=== PATIENT | female | born 1940 | race Caucasian/White ===

== ENCOUNTER 2016-10-05 17:51 | Emergency (ER) | payer MEDICARE ==
[~2016-10-05] VITALS: Ht 175.3 cm; Wt 87.2 kg
[2016-10-05 17:57] VITALS: BP 126/66; PULSE 69; RESP 16; TEMP 97.4; O2SAT 97
[2016-10-05 18:22] LABS: BLOOD, URINE NEG (NEG); GLUCOSE,URINE NEG (NEG); KETONE, URINE TRACE mg/dL (NEG); NITRITE,URINE NEG (NEG)
[2016-10-05 18:24] LABS: URINE COLOR YELLOW (YELLW/STRAW)
[2016-10-05 18:28] LABS: COMMENT (UR) CULT NOT INDICATED; CULTURE IF INDICATED CULT NOT INDICATED; RBC, URINE 0-2 /hpf (0-3); SQUAMOUS EPITHELIAL CELL URINE 0-5 /hpf (0-5)
[2016-10-05] MEDS ORDERED: SODIUM CHLOR 0.9% 1000 ML INJ 1,000 ML IV SCH (18:51)
[2016-10-05] MEDS ORDERED: SODIUM CHLORIDE 0.9% FLUSH 5 ML FLUSH IVF PRN (19:00)
--- NOTE | 2016-10-05 19:19 | RADHPO ---
EXAM DATE/TIME: 10/05/2016 18:57 [facility] COMPARISON: No previous studies available for comparison. INDICATIONS : Patient states abdominal distention. MEDICAL HISTORY : None. SURGICAL HISTORY : Tubal ligation. Appendectomy. ENCOUNTER: Initial ACUITY: 4 - 6 days PAIN SCORE: 6/10 LOCATION: Bilateral Abdomen FINDINGS: Supine and upright views of the abdomen were performed. The abdominal bowel gas pattern is normal. No air fluid levels are seen. No abnormal masses, calcifications, or organomegaly is seen. The visu alized lower lungs are clear. No evidence of free intraperitoneal gas. 4 cm smoothly marginated calcification seen projecting over the right upper quadrant. The osseous structures are unremarkable. CONCLUSION: 1. Nonobstructive bowel gas pattern. 2. No free air. 3. Large stone in the right upper quadrant, presumably a gallstone. Porcelain gallbladder could mark ivably appear similar. Hossein Edouard MD on October 05, 2016 at 19:17 Board Certified Radiologist. This report was verified electronically.
--- NOTE | 2016-10-05 19:30 | PD ---
HPI Chief Complaint: Abdominal Pain Time Seen by Provider: 19:20 Travel History International Travel<30 days: No Contact w/Intl Traveler<30days: No Traveled to known affect area: No History of Present Illness HPI 76-year-old female presents to the emergency department by private transportation for evaluation of abdominal discomfort and inability to have a bowel movement for the past 3-5 days. Patient states she is visiting the area with her daughter from [facility]. Patient states she's been in the area since the 22 September. Patient states she has not had a normal bowel movement in that timeframe only small amounts. Patient states due to persistent constipation or inability to have a satisfactory bowel movement decided to go to a bowel massage therapist and had a small bowel movement and then went to the [facility] today was evaluated and identified to have epigastric and RUQ pain; she was encouraged come to the emergency room to be evaluated for bowel obstruction possible gallbladder disease and to have a CAT scan with contrast based upon paper work that presents with the patient. Patient denies fever or chills. Patient's had no nausea or vomiting. Patient states pain is somewhat epigastric. Patient admits to heavy fatty food consumption around [place]. Patient states that in March her from cancer and while he was being treated for cancer he was following a protocol per a specialist in detoxification which included daily or every other day Dr Dunn coffee-ground enemas at [facility] in [place]. Patient states that after her passed she felt she needed detoxification so for the past 3 months every day or every other day she has religiously administered the same bowel prep with coffee-ground enemas to have bowel movements on herself. Patient states she successfully detoxified herself and then decided to come here on vacation September 22 and since that time she has not performed any coffee-ground enemas and subsequently has not had any satisfactory bowel movements. Patient rates discomfort 5/10 in intensity. Patient does not report any melena or hematochezia. Patient denies any dysuria frequency or urgency. Patient denies any chronic medical conditions. Patient is status post appendectomy in the past. Patient also has had previous tubal ligation. Patient takes no prescription medications reported. PFSH Past Medical History Narrative Medical Tubal ligation, appendectomy; no tobacco use; nursing notes reviewed ?: Not Social History Tobacco Use: No Allergies-Medications (Allergen,Severity, Reaction): Coded Allergies: No Known Allergies (Unverified , 10/05/16) Reported Meds & Prescriptions Reported Meds & Active Scripts Active Zofran Odt (Ondansetron Odt) 4 Mg Tab 4 Mg SL Q6HR PRN Narrative Medication No medications Review of Systems Except as stated in HPI: all other systems reviewed are Neg General / Constitutional: Positive: Weight Gain (subjective weight gain), No: Fever, Chills HENT: No: Congestion Cardiovascular: No: Chest Pain or Discomfort Respiratory: No: Shortness of Breath Gastrointestinal: Positive: Abdominal Pain, Constipation, No: Nausea, Vomiting , Diarrhea, Hematochezia, Loss of Appetite Genitourinary: No: Dysuria, Pelvic Pain Musculoskeletal: No: Myalgias, Arthralgias Skin: No Rash Neurologic: No: Weakness Psychiatric: No: Anxiety Hematologic/Lymphatic: No: Lymph Node Enlargement Physical Exam Narrative GENERAL: Well-developed well-nourished female in no acute distress no respiratory distress SKIN: Warm and dry. HEAD: Normocephalic. EYES: No scleral icterus. No injection or drainage. NECK: Supple, trachea midline. No JVD or lymphadenopathy. CARDIOVASCULAR: Regular rate and rhythm without murmurs, gallops, or rubs. RESPIRATORY: Breath sounds equal bilaterally. No accessory muscle use. GASTROINTESTINAL: Abdomen soft, non-tender, nondistended. Nondistended and no guarding no rebound no clinical Daniels sign. Rectal exam normal sphincter tone brown stool in the rectal vault. MUSCULOSKELETAL: No cyanosis, or edema. BACK: Nontender without obvious deformity. No CVA tenderness. Data Data Last Documented VS Orders Urinalysis - C+S If Indicated (10/05/16 18:14) Complete Blood Count With Diff (10/05/16 18:51) Comprehensive Metabolic Panel (10/05/16 18:51) Lipase (10/05/16 18:51) Lactic Acid (10/05/16 18:51) Abdomen, Flat & Upright (10/05/16 ) Iv Access Insert/Monitor (10/05/16 18:51) Ecg Monitoring (10/05/16 18:51) Oximetry (10/05/16 18:51) Sodium Chlor 0.9% 1000 Ml Inj (Ns 1000 M (10/05/16 18:51) Sodium Chloride 0.9% Flush (Ns Flush) (10/05/16 19:00) Ct Abd/Pel W Iv Contrast(Rout) (10/05/16 19:20) Us Abdomen Gallbladder (10/05/16 ) Iohexol 350 Inj (Omnipaque 350 Inj) (10/05/16 21:06) Labs MDM Medical Decision Making Medical Screen Exam Complete: Yes Emergency Medical Condition: Yes Medical Record Reviewed: Yes Interpretation(s) cbc: wnl cmp: wnl lipase: not elevated lactic acid: not elevated ua: wnl axr: no obstruction concern for calcified stone or porcine gallbladder Last Impressions Abdomen/Pelvis CT 10/05/16 1920 Signed Impressions: Service Date/Time: October 21:02 - CONCLUSION: 1. Large gallstone. 2. Small cyst in the liver. 3. Atherosclerotic plaque of the abdominal aorta. No aneurysm. 4. Uterine fibroids. Hossein Edouard MD Gall Bladder Ultrasound 10/05/16 0000 Signed Impressions: Service Date/Time: October 21:05 - CONCLUSION: Large stone of the gallbladder fundus with surrounding wall thickening. Please see above. Hossein Edouard MD Abdomen X-Ray 10/05/16 0000 Signed Impressions: Service Date/Time: October 18:57 - CONCLUSION: 1. Nonobstructive bowel gas pattern. 2. No free air. 3. Large stone in the right upper quadrant, presumably a gallstone. Porcelain gallbladder could conceivably appear similar. Hossein Edouard MD Differential Diagnosis Constipation (slow transit, laxative dependent) , bowel obstruction, ileus, biliary colic, cholecystitis, pancreatitis, gastritis, peptic ulcer disease, irritable bowel syndrome Narrative Course IV access obtained specimens collected and sent for resulting Plain film imaging study shows right upper quadrant opacification concerning for large gallstone or porcine gallbladder; US GB ordered CBC metabolic panel lipase lactic acid urinalysis values all in normal range; ultrasound and CT imaging studies ending; patient has been up out of bed and ambulatory in the emergency department in no apparent discomfort; abdomen soft nontender Patient has returned from [facility] imaging studies have been resulted and patient has been reexamined abdomen is soft nontender without guarding or rebound and no clinical Daniels sign. Discomfort has diminished from 5/10 in intensity to 1-1-1/2 over 10 in intensity and patient states that she must leave that she cannot be admitted cannot be observed and has to go home tomorrow. Patient states is been rediscussed and imaging studies have been discussed with on-call general surgery who will see patient in follow-up as an outpatient. Patient is returning to the area as she is moving here in the next few days and will establish with on-call general surgery and will continue to follow up with her local yeast washer. Patient is informed of dietary recommendation is also encouraged to use sparingly MiraLAX and is encouraged to return immediately to the emergency department for pain fever vomiting or any concerns patient is aware again of symptoms to watch for and dietary changes to implement. Patient's questions have been answered to her satisfaction and appears to be stable for outpatient management at this time. HemaPrompt Point of Care Internal Pos. & Neg. Controls: Passed Fecal Specimen Occult Blood: Negative Physician Communication Physician Communication Case discussed with general surgery regarding possible porcine gallbladder and pending CT; discussed with Gen Surgeon regarding CT and US results as well as improved exam nontender and decreased discomfort intensity ---will see as outpatient Diagnosis Primary Impression: Biliary colic Additional Impressions: Cholelithiasis Qualified Code: K80.20 - Calculus of gallbladder without cholecystitis without obstruction Constipation due to slow transit Referrals: Mookie Rush MD call for appointment Handle Attacher General Surgeon---call office to schedule follow up outpatient appointment Belt Loop Machine Operator call for appointment Patient Instructions: General Instructions Additional Instructions: Follow clear liquid diet for next 12-24 hours advance as tolerated to bland/ Barbra diet avoiding dairy and fried/fatty foods advance to regular diet again avoiding dairy/fried and fatty foods Follow-up with your primary care physician; follow-up with your yeast washer call office to schedule follow-up appointment; follow-up with general surgeon to schedule outpatient appointment Return to the emergency department for pain, fever, vomiting, or any concerns Take as needed as tolerated acetaminophen/Tylenol for fever 100.4F or greater Takes Zofran as prescribed as needed for nausea and/or vomiting Add MiraLAX to dietary intake and bowel habit management with increased hydration over the next 3-4 days to facilitate bowel movement; may use Dulcolax suppository times one as needed Med/Other Pt SpecificInfo: Prescription(s) given Scripts Ondansetron Odt (Zofran Odt)4 Mg Tab4 Mg SL Q6HR PRN (Nausea/Vomiting) #10 TAB Ref 0 Prov:Bernadette Arroyo MD 10/05/16 Disposition: 01 DISCHARGE HOME Condition: Stable Bernadette Arroyo MD Oct 05, 2016 19:30 Lipase 205 U/L [facility] Medical Decision Making Medical Screen Exam Complete: Yes Emergency Medical Condition: Yes Medical Record Reviewed: Yes Interpretation(s) cbc: wnl cmp: wnl lipase: not elevated lactic acid: not elevated ua: wnl axr: no obstruction concern for calcified stone or porcine gallbladder Last Impressions Abdomen/Pelvis CT 10/05/16 1920 Signed Impressions: Service Date/Time: October 21:02 - CONCLUSION: 1. Large gallstone. 2. Small cyst in the liver. 3. Atherosclerotic plaque of the abdominal aorta. No aneurysm. 4. Uterine fibroids. Hossein Edouard MD Gall Bladder Ultrasound 10/05/16 0000 Signed Impressions: Service Date/Time: October 21:05 - CONCLUSION: Large stone of the gallbladder fundus with surrounding wall thickening. Please see above. Hossein Edouard MD Abdomen X-Ray 10/05/16 0000 Signed Impressions: Service Date/Time: October 18:57 - CONCLUSION: 1. Nonobstructive bowel gas pattern. 2. No free air. 3. Large stone in the right upper quadrant, presumably a gallstone. Porcelain gallbladder could conceivably appear similar. Hossein Edouard MD Differential Diagnosis Constipation (slow transit, laxative dependent) , bowel obstruction, ileus, biliary colic, cholecystitis, pancreatitis, gastritis, peptic ulcer disease, irritable bowel syndrome Narrative Course IV access obtained specimens collected and sent for resulting Plain film imaging study shows right upper quadrant opacification concerning for large gallstone or porcine gallbladder; US GB ordered CBC metabolic panel lipase lactic acid urinalysis values all in normal range; ultrasound and CT imaging studies ending; patient has been up out of bed and ambulatory in the emergency department in no apparent discomfort; abdomen soft nontender Patient has returned from [facility] imaging studies have been resulted and patient has been reexamined abdomen is soft nontender without guarding or rebound and no clinical Daniels sign. Discomfort has diminished from 5/10 in intensity to 1-1-1/2 over 10 in intensity and patient states that she must leave that she cannot be admitted cannot be observed and has to go home tomorrow. Patient states is been rediscussed and imaging studies have been discussed with on-call general surgery who will see patient in follow-up as an outpatient. Patient is returning to the area as she is moving here in the next few days and will establish with on-call general surgery and will continue to follow up with her local yeast washer. Patient is informed of dietary recommendation is also encouraged to use sparingly MiraLAX and is encouraged to return immediately to the emergency department for pain fever vomiting or any concerns patient is aware again of symptoms to watch for and dietary changes to implement. Patient's questions have been answered to her satisfaction and appears to be stable for outpatient management at this time. HemaPrompt Point of Care Internal Pos. & Neg. Controls: Passed Fecal Specimen Occult Blood: Negative Physician Communication Physician Communication Case discussed with general surgery regarding possible porcine gallbladder and pending CT; discussed with Gen Surgeon regarding CT and US results as well as improved exam nontender and decreased discomfort intensity ---will see as outpatient Diagnosis Primary Impression: Biliary colic Additional Impressions: Cholelithiasis Qualified Code: K80.20 - Calculus of gallbladder without cholecystitis without obstruction Constipation due to slow transit Referrals: Mookie Rush MD call for appointment Handle Attacher General Surgeon---call office to schedule follow up outpatient appointment Belt Loop Machine Operator call for appointment Patient Instructions: General Instructions Additional Instructions: Follow clear liquid diet for next 12-24 hours advance as tolerated to bland/ Barbra diet avoiding dairy and fried/fatty foods advance to regular diet again avoiding dairy/fried and fatty foods Follow-up with your primary care physician; follow-up with your yeast washer call office to schedule follow-up appointment; follow-up with general surgeon to schedule outpatient appointment Return to the emergency department for pain, fever, vomiting, or any concerns Take as needed as tolerated acetaminophen/Tylenol for fever 100.4F or greater Takes Zofran as prescribed as needed for nausea and/or vomiting Add MiraLAX to dietary intake and bowel habit management with increased hydration over the next 3-4 days to facilitate bowel movement; may use Dulcolax suppository times one as needed Med/Other Pt SpecificInfo: Prescription(s) given Scripts Ondansetron Odt (Zofran Odt)4 Mg Tab4 Mg SL Q6HR PRN (Nausea/Vomiting) #10 TAB Ref 0 Prov:Bernadette Arroyo MD 10/05/16 Disposition: 01 DISCHARGE HOME Condition: Stable Bernadette Arroyo MD Oct 05, 2016 19:30
[2016-10-05 19:31] LABS: AUTOMATED NEUTROPHIL # 3.2 TH/MM3 (1.8-7.7); BASOPHIL # 0.1 TH/MM3 (0-0.2); BASOPHIL % 1.7 % (0.0-2.0); EOSINOPHIL # 0.8 TH/MM3 (0-0.4); HEMATOCRIT 38.2 % (35.0-46.0); HEMO FLAGS DIFF FINAL; LYMPH % 35.5 % (9.0-44.0); LYMPHOCYTE # 2.7 TH/MM3 (1.0-4.8); MEAN CELL VOLUME 88.6 FL (80.0-100.0); MEAN CORPUSCULAR HEMOGLOBIN 30.1 PG (27.0-34.0); MONO % 9.5 % (0.0-8.0); NEUT % 43.3 % (16.0-70.0); PLATELET COUNT 279 TH/MM3 (150-450); RED BLOOD COUNT 4.32 MIL/MM3 (4.00-5.30); RED CELL DISTRIBUTION WIDTH 13.5 % (11.6-17.2); WHITE BLOOD COUNT 7.5 TH/MM3 (4.0-11.0)
[2016-10-05 19:40] LABS: CHLORIDE 108 MEQ/L (98-107); SODIUM (NA) 144 MEQ/L (136-145)
[2016-10-05 19:44] LABS: ANION GAP 4 MEQ/L (5-15); BICARBONATE 31.9 MEQ/L (21.0-32.0); BLOOD UREA NITROGEN 18 MG/DL (7-18)
[2016-10-05 19:47] LABS: ALT (GPT) 22 U/L (10-53); AST (GOT) 11 U/L (15-37); GLOMERULAR FILTRATION RATE 58 ML/MIN (>89)
[2016-10-05 19:48] LABS: TOTAL BILIRUBIN ADULT 0.3 MG/DL (0.2-1.0)
[2016-10-05 19:50] LABS: ALKALINE PHOSPHATASE 52 U/L (45-117)
[2016-10-05] MEDS ORDERED: IOHEXOL 350 MG/ML 10 ML VIAL (for RAD DIAG) IV ONE (21:06)
--- NOTE | 2016-10-05 21:18 | RADRPT ---
EXAM DATE/TIME: 10/05/2016 21:02 [facility] COMPARISON: No previous studies available for comparison. INDICATIONS : Mid-right abdominal pain with nausea and vomiting for 5 days. IV CONTRAST: 91 cc Omnipaque 350 (iohexol) IV ORAL CONTRAST: No oral contrast ingested. RADIATION DOSE: 12.47 CTDIvol (mGy) MEDICAL HISTORY : None SURGICAL HISTORY : Appendectomy. Tubal ligation. ENCOUNTER: Initial ACUITY: 4 - 6 days PAIN SCALE: 5/10 LOCATION: Right middle Abdomen/pelvis TECHNIQUE: Volumetric scanning of the abdomen and pelvis was performed. Using automated exposure control and ad justment of the mA and/or kV according to patient size, radiation dose was kept as low as reasonably achievable to obtain optimal diagnostic quality images. FINDINGS: LOWER LUNGS: The visualized lower lungs are clear. LIVER: 8mm left hepatic lobe benign-appearing cyst. No other focal hepatic lesions are seen.. There is no d ilation of the biliary tree. Large stone is seen at the gallbladder fundus. No perceptible inflammato ry changes. There is no duct stone or ductal dilatation.. SPLEEN: Normal size without lesion. PANCREAS: Within normal limits. KIDNEYS: Normal in size and shape. There is no mass, stone or hydronephrosis. ADRENAL GLANDS: Within normal limits. VASCULAR: Atherosclerotic plaque seen of the aorta. No aneurysm. BOWEL/MESENTERY: The stomach, small bowel, and colon demonstrate no acute abnormality. There is no free intraperitone al air or fluid. ABDOMINAL WALL: Within normal limits. RETROPERITONEUM: There is no lymphadenopathy. BLADDER: No wall thickening or mass. REPRODUCTIVE: There are multiple uterine fibroids, some partly calcified. Adnexal regions are within normal limits. No free fluid seen. INGUINAL: There is no lymphadenopathy or hernia. MUSCULOSKELETAL: No acute bony abnormality demonstrated. 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 CONCLUSION: 1. Large gallstone. 2. Small cyst in the liver. 3. Atherosclerotic plaque of the abdominal aorta. No aneurysm. 4. Uterine fibroids. Hossein Edouard MD on October 05, 2016 at 21:13 Board Certified Radiologist. This report was verified electronically.
--- NOTE | 2016-10-05 21:46 | RADHPO ---
EXAM DATE/TIME: 10/05/2016 21:05 [facility] COMPARISON: No previous studies available for comparison. INDICATIONS : Right upper quadrant pain. MEDICAL HISTORY : Right upper quadrant pain. SURGICAL HISTORY : Appendectomy. Tubal ligation. ENCOUNTER: Initial ACUITY: 3 weeks PAIN SCORE: 7/10 LOCATION: Right upper quadrant MEASUREMENTS: LIVER: 16.6 cm length COMMON DUCT: 4 mm RIGHT KIDNEY: 11.4 x 5.6 x 5.4 cm FINDINGS: LIVER: Normal echotexture without focal lesion or ductal dilatation. COMMON DUCT: No intraluminal mass or stone visualized. GALLBLADDER: There is a stone within the lumen at the gallbladder fundus that measures around 2.2 x 1.6 x 2.5 cm i n size. The surrounding wall is thickened. The fundus appears partly folded over or potentially a phr ygian cap present so this stone could be trapped or impacted within the fundus. No definite sonograph ic Daniels sign elicited. PANCREAS: The visualized portions are within normal limits. RIGHT KIDNEY: No evidence of hydronephrosis, stone, or mass. CONCLUSION: Large stone of the gallbladder fundus with surrounding wall thickening. Please see above. Hossein Edouard MD on October 05, 2016 at 21:42 Board Certified Radiologist. This report was verified electronically.
[2016-10-05] MEDS ORDERED: ZOFR4TAB3 SL (22:08)
[2016-10-05 22:31] VITALS: BP 143/76; TEMP 98.8
== END 2016-10-05 22:34 | disposition home or self-care (01) ==
LOC: PHED 17:51
DX: K80.50 Calculus of bile duct without cholangitis or cholecystitis without obstruction (principal); K80.20 Calculus of gallbladder without cholecystitis without obstruction
CPT/HCPCS: 74020; 74177; 76705; 80053; 81001; 83605; 83690; 85025; 99284; Q9967